=== PATIENT | male | born 1945 | race Caucasian/White ===

== ENCOUNTER 2017-09-14 13:41 | Inpatient (IN) | payer OTHER ==
[~2017-09-14] VITALS: Ht 177.8 cm; Wt 83.8 kg
[2017-09-14 14:02] LABS: AMYLASE 59 IU/L (1-118); CHLORIDE 106 mEq/L (99-109); POTASSIUM 3.8 mEq/L (3.7-5.4); SODIUM 139 mEq/L (136-147)
[2017-09-14 14:04] LABS: GLUCOSE 173 mg/dL (70-99)
[2017-09-14 14:06] LABS: BASOPHIL (%) 0.4 % (0-1); EOSINOPHIL (%) 1.1 % (0-5); EOSINOPHIL COUNT 0.1 K/uL (0-0.3); HEMATOCRIT 37.2 % (38.0-50.0); HEMOGLOBIN 12.7 G/DL (12.5-16.6); IMMATURE GRANULOCYTE (%) 1.1 % (0.0-0.7); LYMPHOCYTE (%) 27.5 % (15-42); LYMPHOCYTE COUNT 1.3 K/uL (1.0-2.8); MCH 33.5 PG (29.0-34.0); MCHC 34.1 G/DL (30.0-36.0); MCV 98.2 FL (86-99); MONOCYTE (%) 5.5 % (3-12); MONOCYTE COUNT 0.3 K/uL (0-0.8); NEUTROPHIL (%) 64.4 % (45-76); RBC DIS.WIDTH-CV 12.6 % (11.8-14.6); RBC DIS.WIDTH-SD 45.5 % (39-53); RED BLOOD COUNT 3.79 M/uL (4.00-5.50); WHITE BLOOD COUNT 4.7 K/uL (4.1-10.2)
[2017-09-14 14:08] LABS: CREATININE 0.9 mg/dL (0.6-1.3); GFR ESTIMATE (CALCULATED) > 59 mL/min/ (58.99-99999); SERUM ETHYL ALCOHOL < 10 mg/dL
[2017-09-14 14:09] LABS: UREA NITROGEN (BUN) 13 mg/dL (9-23)
[2017-09-14 14:11] LABS: LIPASE 23 U/L (1.0-51.0)
[2017-09-14 15:13] LABS: ABS NEUTROPHIL COUNT 3.6; ANISOCYTOSIS 1+; ATYPICAL LYMPHOCYTE 2.7 %; BAND NEUTROPHILS 8.9 % (0-8.0); BASOPHILS 0.9 %; EOSINOPHIL ABS CT 0.1; EOSINOPHILS 2.7 % (0-5.0); IMM.PLATELET FRACTION 1.8 (1-7); LYMPHOCYTES 13.4 % (15.0-45.0); MACROCYTES 1+; METAMYELOCYTES 0.9 %; MONOCYTES 1.8 % (0-9.0); MYELOCYTES 0.9 %; PLAT.SUFFICIENCY VERY DECREASED; PLATELET COUNT 41 K/uL (156-360); SEG.NEUTROPHILS 67.8 % (46.0-76.0)
[2017-09-14 15:15] LABS: ALBUMIN 3.7 g/dL (3.2-4.8)
[2017-09-14 15:18] LABS: TOTAL PROTEIN 6.1 g/dL (6.4-8.3)
[2017-09-14 15:20] LABS: TOTAL BILIRUBIN 0.4 mg/dL (0.0-1.0)
[2017-09-14 15:21] LABS: ALKALINE PHOSPHATASE 72 IU/L (3-129)
[2017-09-14 15:23] LABS: AST (GOT) 18 IU/L (2-34); DIRECT BILIRUBIN 0.1 mg/dL (0.0-0.3)
[2017-09-14 15:24] LABS: ALT (GPT) 10 IU/L (3-49)
[2017-09-14 16:10] LABS: INTER. NORMALIZED RATIO 1.1
[2017-09-14 16:27] LABS: AMPHETAMINE NEGATIVE (500 ng/mL); APPEARANCE CLEAR ((CLEAR)); BARBITURATES PRESUMPTIVE POSITIVE (200 ng/mL); BENZODIAZEPINES NEGATIVE (150 ng/mL); BILIRUBIN NEGATIVE; BLOOD NEGATIVE; BUPRENORPHINE NEGATIVE (10 ng/mL); COCAINE PRESUMPTIVE POSITIVE (150 ng/mL); COLOR AMBER ((YELLOW)); GLUCOSE (STRIP) NEGATIVE; KETONES 5; LEUKOCYTES NEGATIVE; METHADONE NEGATIVE (200 ng/mL); METHAMPHETAMINE NEGATIVE (500 ng/mL); NITRITE NEGATIVE; OPIATES (MORPHINE) NEGATIVE (100 ng/mL); OXYCODONE NEGATIVE (100 ng/mL); PHENCYCLIDINE NEGATIVE (25 ng/mL); PROPOXYPHENE NEGATIVE (300 ng/mL); PROTEIN (STRIP) NEGATIVE; SPECIFIC GRAVITY 1.043 (1.000-1.030); THC CANNABINOIDS NEGATIVE (50 ng/mL); TRICYCLIC ANTIDEPRESSANTS NEGATIVE (300 ng/mL); UCUL ADDED? NO; UROBILINOGEN 0.2 MG/DL (0.2-1.0)
[2017-09-14 16:31] LABS: PTT 16.6 SEC (25-37)
[2017-09-14] MEDS ORDERED: DILANTIN100 MG PO (17:33)
[2017-09-14] MEDS ORDERED: SINEMET CR 50-1 EACH PO (17:33)
[2017-09-14] MEDS ORDERED: MIRAPEX1 MG PO (17:33)
[2017-09-14] MEDS ORDERED: CYANOCOBALAM1000 MCG PO (17:34)
[2017-09-14] MEDS ORDERED: COLACE100 MG PO (17:34)
[2017-09-14] MEDS ORDERED: ADULT ASPIRIN81 MG PO (17:34)
[2017-09-14] MEDS ORDERED: VITAMIN D31000 UNIT PO (17:34)
[2017-09-14] MEDS ORDERED: SINEMET 25-2501 EAC1 PO (17:34)
[2017-09-14] MEDS ORDERED: LASIX20 MG PO (17:36)
[2017-09-14] MEDS ORDERED: TOPAMAX100 MG PO (17:36)
[2017-09-14] MEDS ORDERED: COMTAN200 MG PO (17:36)
[2017-09-14] MEDS ORDERED: SIMVASTATIN20 MG PO (17:36)
[2017-09-14 20:05] VITALS: BP 123/61
[2017-09-14 20:26] VITALS: BP 123/61
[2017-09-14 21:00] VITALS: BP 116/56
[2017-09-14 22:00] VITALS: BP 100/60
[2017-09-14 22:19] LABS: ALBUMIN 3.1 G/DL (3.2-4.8); ALKALINE PHOSPHATASE 52 IU/L (3-129); ALT (GPT) 14 IU/L (3-49); AST (GOT) 13 IU/L (2-34); CHLORIDE 109 MEQ/L (99-109); CREATINE KINASE 353 IU/L (1-294); CREATININE 0.7 MG/DL (0.6-1.3); GFR ESTIMATE (CALCULATED) > 59 mL/min/ (58.99-99999); GLUCOSE 148 mg/dL (70-99); MAGNESIUM 1.9 mg/dl (1.3-2.7); PHOSPHORUS 2.2 mg/dL (2.5-4.9); POTASSIUM 3.8 MEQ/L (3.7-5.4); SODIUM 139 MEQ/L (136-147); TOTAL BILIRUBIN 0.7 MG/DL (0.0-1.0); TOTAL PROTEIN 5.4 G/DL (6.4-8.3); UREA NITROGEN (BUN) 10 mg/dL (9-23)
[2017-09-14 22:20] LABS: HEMATOCRIT 34.5 % (38.0-50.0); HEMOGLOBIN 11.5 G/DL (12.5-16.6); MCH 33.3 PG (29.0-34.0); MCHC 33.3 G/DL (30.0-36.0); RBC DIS.WIDTH-CV 12.7 % (11.8-14.6); RBC DIS.WIDTH-SD 46.1 % (39-53); RED BLOOD COUNT 3.45 M/uL (4.00-5.50); WHITE BLOOD COUNT 5.2 K/uL (4.1-10.2)
[2017-09-14 22:27] LABS: TROP-I INTERPRETATION NEGATIVE; TROPONIN-I < 0.01 ng/mL (0.0-0.30)
[2017-09-14 22:30] LABS: IMM.PLATELET FRACTION 1.6 (1-7)
[2017-09-14 22:33] LABS: PLATELET COUNT 22 K/uL (156-360)
[2017-09-14 23:00] VITALS: BP 129/60
[2017-09-15] VITALS (38 sets, daily range): BP systolic 74–141; BP diastolic 39–76
[2017-09-15 06:08] LABS: HEMATOCRIT 34.4 % (38.0-50.0); HEMOGLOBIN 11.3 G/DL (12.5-16.6); MCH 33.4 PG (29.0-34.0); MCHC 32.8 G/DL (30.0-36.0); MCV 101.8 FL (86-99); RBC DIS.WIDTH-CV 12.8 % (11.8-14.6); RBC DIS.WIDTH-SD 47.8 % (39-53); RED BLOOD COUNT 3.38 M/uL (4.00-5.50); WHITE BLOOD COUNT 5.6 K/uL (4.1-10.2)
[2017-09-15 07:14] LABS: IMM.PLATELET FRACTION 1.9 (1-7); PLAT.SUFFICIENCY DECREASED
[2017-09-15 07:15] LABS: PLATELET COUNT 23 K/uL (156-360)
[2017-09-15 08:25] LABS: HEMATOCRIT 32.7 % (38.0-50.0); HEMOGLOBIN 10.7 G/DL (12.5-16.6); MCH 33.1 PG (29.0-34.0); MCHC 32.7 G/DL (30.0-36.0); MCV 101.2 FL (86-99); RBC DIS.WIDTH-CV 12.8 % (11.8-14.6); RBC DIS.WIDTH-SD 47.5 % (39-53); RED BLOOD COUNT 3.23 M/uL (4.00-5.50); WHITE BLOOD COUNT 5.6 K/uL (4.1-10.2)
[2017-09-15 08:43] LABS: ALBUMIN 2.9 G/DL (3.2-4.8); ALKALINE PHOSPHATASE 51 IU/L (3-129); ALT (GPT) 3 IU/L (3-49); AST (GOT) 11 IU/L (2-34); CHLORIDE 109 MEQ/L (99-109); CREATINE KINASE 316 IU/L (1-294); CREATININE 0.7 MG/DL (0.6-1.3); GFR ESTIMATE (CALCULATED) > 59 mL/min/ (58.99-99999); GLUCOSE 133 mg/dL (70-99); MAGNESIUM 1.7 mg/dl (1.3-2.7); PHOSPHORUS 2.2 mg/dL (2.5-4.9); SODIUM 141 MEQ/L (136-147); TOTAL BILIRUBIN 0.8 MG/DL (0.0-1.0); TOTAL PROTEIN 4.7 G/DL (6.4-8.3); UREA NITROGEN (BUN) 9 mg/dL (9-23)
[2017-09-15 08:44] LABS: TROP-I INTERPRETATION NEGATIVE; TROPONIN-I < 0.01 ng/mL (0.0-0.30)
[2017-09-15 08:56] LABS: PLAT.SUFFICIENCY DECREASED
[2017-09-15 08:57] LABS: PLATELET COUNT 30 K/uL (156-360)
[2017-09-15 10:16] LABS: HEMOGLOBIN A1c (GLYCOHEMOGLOB) 5.6 % (Below 5.7)
[2017-09-15 12:26] LABS: BASOPHIL (%) 0.3 % (0-1); EOSINOPHIL (%) 0.5 % (0-5); HEMATOCRIT 28.3 % (38.0-50.0); HEMOGLOBIN 9.6 G/DL (12.5-16.6); IMMATURE GRANULOCYTE (%) 0.6 % (0.0-0.7); LYMPHOCYTE (%) 11.9 % (15-42); LYMPHOCYTE COUNT 0.8 K/uL (1.0-2.8); MCH 34.2 PG (29.0-34.0); MCHC 33.9 G/DL (30.0-36.0); MCV 100.7 FL (86-99); MONOCYTE (%) 5.6 % (3-12); MONOCYTE COUNT 0.4 K/uL (0-0.8); NEUTROPHIL (%) 81.1 % (45-76); NEUTROPHIL COUNT 5.1 K/uL (1.8-6.4); RBC DIS.WIDTH-CV 12.9 % (11.8-14.6); RED BLOOD COUNT 2.81 M/uL (4.00-5.50); WHITE BLOOD COUNT 6.3 K/uL (4.1-10.2)
[2017-09-15 12:42] LABS: IMM.PLATELET FRACTION 2.5 (1-7); PLAT.SUFFICIENCY DECREASED
[2017-09-15 12:55] LABS: PLATELET COUNT 40 K/uL (156-360)
[2017-09-15 20:29] LABS: TROP-I INTERPRETATION NEGATIVE; TROPONIN-I < 0.01 ng/mL (0.0-0.30)
[2017-09-15 20:35] LABS: ALKALINE PHOSPHATASE 54 IU/L (3-129); ALT (GPT) 3 IU/L (3-49); AST (GOT) 11 IU/L (2-34); CHLORIDE 108 MEQ/L (99-109); CREATININE 0.6 MG/DL (0.6-1.3); GFR ESTIMATE (CALCULATED) > 59 mL/min/ (58.99-99999); GLUCOSE 152 mg/dL (70-99); MAGNESIUM 1.8 mg/dl (1.3-2.7); PHOSPHORUS 2.5 mg/dL (2.5-4.9); POTASSIUM 3.9 MEQ/L (3.7-5.4); SODIUM 138 MEQ/L (136-147); TOTAL BILIRUBIN 0.6 MG/DL (0.0-1.0); TOTAL PROTEIN 4.8 G/DL (6.4-8.3); UREA NITROGEN (BUN) 8 mg/dL (9-23)
[2017-09-15 20:55] LABS: HEMATOCRIT 28.5 % (38.0-50.0); HEMATOLOGY COMMENT 1 SN; HEMOGLOBIN 9.5 G/DL (12.5-16.6); MCH 33.6 PG (29.0-34.0); MCHC 33.3 G/DL (30.0-36.0); MCV 100.7 FL (86-99); PLAT.SUFFICIENCY DECREASED; RBC DIS.WIDTH-CV 12.9 % (11.8-14.6); RBC DIS.WIDTH-SD 47.2 % (39-53); RED BLOOD COUNT 2.83 M/uL (4.00-5.50); WHITE BLOOD COUNT 5.1 K/uL (4.1-10.2)
[2017-09-15 20:56] LABS: IMM.PLATELET FRACTION 2.5 (1-7); PLATELET COUNT 40 K/uL (156-360)
[2017-09-15 20:58] LABS: CREATINE KINASE 267 IU/L (1-294)
[2017-09-16] VITALS (14 sets, daily range): BP systolic 88–161; BP diastolic 44–74
[2017-09-16 11:31] LABS: HEMATOCRIT 31.7 % (38.0-50.0); HEMOGLOBIN 10.8 G/DL (12.5-16.6); MCH 34.3 PG (29.0-34.0); MCHC 34.1 G/DL (30.0-36.0); MCV 100.6 FL (86-99); RBC DIS.WIDTH-SD 47.6 % (39-53); RED BLOOD COUNT 3.15 M/uL (4.00-5.50); WHITE BLOOD COUNT 5.9 K/uL (4.1-10.2)
[2017-09-16 11:45] LABS: ALBUMIN 3.4 G/DL (3.2-4.8); CHLORIDE 108 MEQ/L (99-109); MAGNESIUM 1.8 mg/dl (1.3-2.7); POTASSIUM 3.5 MEQ/L (3.7-5.4); SODIUM 138 MEQ/L (136-147); TOTAL BILIRUBIN 0.5 MG/DL (0.0-1.0)
[2017-09-16 11:51] LABS: BASOPHIL (%) 0.2 % (0-1); EOSINOPHIL COUNT 0.1 K/uL (0-0.3); IMMATURE GRANULOCYTE (%) 0.5 % (0.0-0.7); LYMPHOCYTE (%) 16.4 % (15-42); MONOCYTE COUNT 0.5 K/uL (0-0.8); NEUTROPHIL (%) 73.9 % (45-76); NEUTROPHIL COUNT 4.3 K/uL (1.8-6.4); PLAT.SUFFICIENCY DECREASED; PLATELET COUNT 41 K/uL (156-360)
[2017-09-16 11:53] LABS: ALKALINE PHOSPHATASE 62 IU/L (3-129); ALT (GPT) 3 IU/L (3-49); AST (GOT) 11 IU/L (2-34); CREATININE 0.7 MG/DL (0.6-1.3); GFR ESTIMATE (CALCULATED) > 59 mL/min/ (58.99-99999); GLUCOSE 123 mg/dL (70-99); PHOSPHORUS 2.4 mg/dL (2.5-4.9); UREA NITROGEN (BUN) 8 mg/dL (9-23)
[2017-09-16 11:54] LABS: TOTAL PROTEIN 5.6 G/DL (6.4-8.3)
[2017-09-17 08:19] VITALS: BP 115/58
[2017-09-17 11:46] VITALS: BP 141/65
[2017-09-17 15:22] VITALS: BP 143/63
[2017-09-17 20:45] VITALS: BP 146/62
[2017-09-18 00:02] VITALS: BP 137/62
[2017-09-18 05:03] VITALS: BP 130/60
[2017-09-18 07:55] VITALS: BP 142/64
[2017-09-18 11:10] VITALS: BP 109/53
[2017-09-18 15:47] VITALS: BP 159/70
[2017-09-18 20:16] VITALS: BP 140/64
[2017-09-19] VITALS (8 sets, daily range): BP systolic 95–178; BP diastolic 55–79
[2017-09-19 05:56] LABS: BASOPHIL (%) 0.6 % (0-1); EOSINOPHIL (%) 2.8 % (0-5); EOSINOPHIL COUNT 0.1 K/uL (0-0.3); HEMATOCRIT 24.6 % (38.0-50.0); IMMATURE GRANULOCYTE (%) 0.6 % (0.0-0.7); LYMPHOCYTE (%) 31.5 % (15-42); MCH 33.6 PG (29.0-34.0); MCHC 33.7 G/DL (30.0-36.0); MCV 99.6 FL (86-99); MONOCYTE (%) 7.7 % (3-12); MONOCYTE COUNT 0.3 K/uL (0-0.8); NEUTROPHIL (%) 56.8 % (45-76); NEUTROPHIL COUNT 1.8 K/uL (1.8-6.4); RBC DIS.WIDTH-CV 13.2 % (11.8-14.6); RBC DIS.WIDTH-SD 47.4 % (39-53); WHITE BLOOD COUNT 3.2 K/uL (4.1-10.2)
[2017-09-19 06:01] LABS: HEMOGLOBIN 8.3 G/DL (12.5-16.6); RED BLOOD COUNT 2.47 M/uL (4.00-5.50)
[2017-09-19 06:09] LABS: CHLORIDE 109 MEQ/L (99-109); CREATININE 0.6 MG/DL (0.6-1.3); GFR ESTIMATE (CALCULATED) > 59 mL/min/ (58.99-99999); GLUCOSE 125 mg/dL (70-99); POTASSIUM 4.2 MEQ/L (3.7-5.4); SODIUM 142 MEQ/L (136-147); UREA NITROGEN (BUN) 11 mg/dL (9-23)
[2017-09-19 06:24] LABS: IMM.PLATELET FRACTION 1.9 (1-7); PLAT.SUFFICIENCY DECREASED; PLATELET COUNT 42 K/uL (156-360)
[2017-09-19 13:30] LABS: HEMATOCRIT 27.2 % (38.0-50.0); HEMOGLOBIN 9.1 G/DL (12.5-16.6); MCH 33.7 PG (29.0-34.0); MCHC 33.5 G/DL (30.0-36.0); MCV 100.7 FL (86-99); RBC DIS.WIDTH-CV 13.3 % (11.8-14.6); RBC DIS.WIDTH-SD 48.2 % (39-53); WHITE BLOOD COUNT 3.4 K/uL (4.1-10.2)
[2017-09-19 13:51] LABS: IMM.PLATELET FRACTION 1.7 (1-7); PLAT.SUFFICIENCY DECREASED; PLATELET COUNT 45 K/uL (156-360)
[2017-09-20 03:41] VITALS: BP 143/65
[2017-09-20 06:48] LABS: CHLORIDE 107 MEQ/L (99-109); CREATININE 0.7 MG/DL (0.6-1.3); GFR ESTIMATE (CALCULATED) > 59 mL/min/ (58.99-99999); GLUCOSE 118 mg/dL (70-99); POTASSIUM 4.4 MEQ/L (3.7-5.4); SODIUM 140 MEQ/L (136-147); UREA NITROGEN (BUN) 14 mg/dL (9-23)
[2017-09-20 07:01] LABS: BASOPHIL (%) 0.3 % (0-1); EOSINOPHIL (%) 2.3 % (0-5); EOSINOPHIL COUNT 0.1 K/uL (0-0.3); HEMOGLOBIN 8.9 G/DL (12.5-16.6); IMMATURE GRANULOCYTE (%) 0.5 % (0.0-0.7); LYMPHOCYTE (%) 24.2 % (15-42); MCH 33.2 PG (29.0-34.0); MCV 100.7 FL (86-99); MONOCYTE (%) 8.8 % (3-12); MONOCYTE COUNT 0.4 K/uL (0-0.8); NEUTROPHIL (%) 63.9 % (45-76); NEUTROPHIL COUNT 2.5 K/uL (1.8-6.4); RBC DIS.WIDTH-CV 13.5 % (11.8-14.6); RED BLOOD COUNT 2.68 M/uL (4.00-5.50)
[2017-09-20 07:19] LABS: IMM.PLATELET FRACTION 1.5 (1-7); PLAT.SUFFICIENCY DECREASED; PLATELET COUNT 45 K/uL (156-360)
[2017-09-20 08:06] VITALS: BP 154/67
[2017-09-20 10:49] VITALS: BP 125/58
== END 2017-09-20 13:57 | DRG 184 ==
LOC: TRA 13:41 → 4WEST 18:46 → EDOF 18:46 → ENRESERV 19:38 → 4WEST 20:03 → ENRESERV 09-16 12:23 → 3EAST 09-16 14:15
PROVIDERS: Emergency Medicine; Internal Medicine; Internal Medicine Critical Care Medicine; Surgery
PROC: 30233R1 Transfusion of Nonautologous Platelets into Peripheral Vein, Percutaneous Approach (ICD-10-PCS; principal; 2017-09-15)
DX: S22.43XA Multiple fractures of ribs, bilateral, initial encounter for closed fracture (principal); S22.21XA Fracture of manubrium, initial encounter for closed fracture; D69.6 Thrombocytopenia, unspecified; I95.9 Hypotension, unspecified; G20 Parkinson's disease; I10 Essential (primary) hypertension; E78.5 Hyperlipidemia, unspecified; G40.909 Epilepsy, unspecified, not intractable, without status epilepticus; G25.81 Restless legs syndrome; G43.909 Migraine, unspecified, not intractable, without status migrainosus; D64.9 Anemia, unspecified; E56.9 Vitamin deficiency, unspecified; I87.2 Venous insufficiency (chronic) (peripheral); M19.90 Unspecified osteoarthritis, unspecified site; M85.80 Other specified disorders of bone density and structure, unspecified site; N40.1 Benign prostatic hyperplasia with lower urinary tract symptoms; N32.0 Bladder-neck obstruction; V49.50XA Passenger injured in collision with unspecified motor vehicles in traffic accident, initial encounter; Z79.82 Long term (current) use of aspirin
CPT/HCPCS: 70450; 71045; 71250; 71260; 72125; 72129; 72132; 74177; 80048; 80053; 80076; 80185; 81003; 82150; 82272; 82550; 82550 91; 83036; 83690; 83735; 84100; 84153; 84484; 84999; 85025; 85027; 85610; 85730; 86850; 86900; 86901; 87641; 93005; 93306; 99281; 99285; G0480; J1170; J2405; J3010; J7030; J7040; J7042; J7120; P9037

== ENCOUNTER 2017-09-20 10:28 | Inpatient (IN) | payer OTHER ==
[~2017-09-20] VITALS: Ht 177.8 cm; Wt 86.3 kg
[~2017-09-20 10:28] MED LIST: ADULT ASPIRIN81 MG PO; COLACE100 MG PO; COMTAN200 MG PO; CYANOCOBALAM1000 MCG PO; DILANTIN100 MG PO; LASIX20 MG PO; MIRAPEX1 MG PO; SIMVASTATIN20 MG PO; SINEMET 25-2501 EAC1 PO; SINEMET CR 50-1 EACH PO; TOPAMAX100 MG PO; VITAMIN D31000 UNIT PO
[2017-09-20 14:19] VITALS: BP 170/72
[2017-09-20 16:08] VITALS: BP 161/68
[2017-09-20 23:35] VITALS: BP 151/70
[2017-09-21 05:57] VITALS: BP 126/61
[2017-09-21 06:52] LABS: HEMATOCRIT 27.9 % (38.0-50.0); HEMOGLOBIN 9.4 G/DL (12.5-16.6); MCH 33.6 PG (29.0-34.0); MCHC 33.7 G/DL (30.0-36.0); MCV 99.6 FL (86-99); RBC DIS.WIDTH-CV 13.3 % (11.8-14.6); RBC DIS.WIDTH-SD 47.9 % (39-53); WHITE BLOOD COUNT 4.4 K/uL (4.1-10.2)
[2017-09-21 07:03] LABS: ALBUMIN 3.3 G/DL (3.2-4.8); ALKALINE PHOSPHATASE 69 IU/L (3-129); ALT (GPT) 3 IU/L (3-49); AST (GOT) 9 IU/L (2-34); CHLORIDE 106 MEQ/L (99-109); CREATININE 0.7 MG/DL (0.6-1.3); GFR ESTIMATE (CALCULATED) > 59 mL/min/ (58.99-99999); GLUCOSE 96 mg/dL (70-99); POTASSIUM 4.1 MEQ/L (3.7-5.4); SODIUM 139 MEQ/L (136-147); TOTAL BILIRUBIN 0.8 MG/DL (0.0-1.0); TOTAL PROTEIN 5.4 G/DL (6.4-8.3); UREA NITROGEN (BUN) 14 mg/dL (9-23)
[2017-09-21 07:30] LABS: IMM.PLATELET FRACTION 1.7 (1-7); PLAT.SUFFICIENCY DECREASED; PLATELET COUNT 45 K/uL (156-360)
[2017-09-21 15:22] VITALS: BP 138/65
[2017-09-22 05:12] VITALS: BP 98/58
[2017-09-22 06:13] LABS: CHLORIDE 104 MEQ/L (99-109); CREATININE 0.7 MG/DL (0.6-1.3); GFR ESTIMATE (CALCULATED) > 59 mL/min/ (58.99-99999); GLUCOSE 92 mg/dL (70-99); POTASSIUM 3.9 MEQ/L (3.7-5.4); SODIUM 138 MEQ/L (136-147); UREA NITROGEN (BUN) 19 mg/dL (9-23)
[2017-09-22 06:39] LABS: BASOPHIL (%) 0.5 % (0-1); EOSINOPHIL (%) 2.4 % (0-5); EOSINOPHIL COUNT 0.1 K/uL (0-0.3); HEMATOCRIT 27.1 % (38.0-50.0); HEMOGLOBIN 9.2 G/DL (12.5-16.6); IMMATURE GRANULOCYTE (%) 0.5 % (0.0-0.7); LYMPHOCYTE (%) 30.2 % (15-42); LYMPHOCYTE COUNT 1.3 K/uL (1.0-2.8); MCH 33.8 PG (29.0-34.0); MCHC 33.9 G/DL (30.0-36.0); MCV 99.6 FL (86-99); MONOCYTE COUNT 0.3 K/uL (0-0.8); NEUTROPHIL (%) 58.4 % (45-76); NEUTROPHIL COUNT 2.5 K/uL (1.8-6.4); RBC DIS.WIDTH-CV 13.6 % (11.8-14.6); RBC DIS.WIDTH-SD 47.8 % (39-53); RED BLOOD COUNT 2.72 M/uL (4.00-5.50); WHITE BLOOD COUNT 4.2 K/uL (4.1-10.2)
[2017-09-22 07:08] LABS: IMM.PLATELET FRACTION 1.9 (1-7); PLAT.SUFFICIENCY DECREASED; PLATELET COUNT 48 K/uL (156-360)
[2017-09-22 15:37] VITALS: BP 120/60
[2017-09-23 06:55] VITALS: BP 153/70
[2017-09-23 15:21] VITALS: BP 117/57
[2017-09-24 05:22] VITALS: BP 120/62
[2017-09-24 15:05] VITALS: BP 107/56
[2017-09-25 04:47] VITALS: BP 117/58
[2017-09-25 15:06] VITALS: BP 120/61
[2017-09-26 05:49] VITALS: BP 115/58
[2017-09-26 06:39] LABS: CHLORIDE 108 MEQ/L (99-109); CREATININE 0.8 MG/DL (0.6-1.3); GFR ESTIMATE (CALCULATED) > 59 mL/min/ (58.99-99999); GLUCOSE 96 mg/dL (70-99); IRON 66 MCG/DL (35-150); POTASSIUM 4.5 MEQ/L (3.7-5.4); SODIUM 140 MEQ/L (136-147); TRANSFERRIN (TIBC) 168.5 mg/dL (215-380); TRANSFERRIN SATUR. 39 % (20-55); UREA NITROGEN (BUN) 18 mg/dL (9-23)
[2017-09-26 06:43] LABS: BASOPHIL (%) 0.5 % (0-1); EOSINOPHIL (%) 1.9 % (0-5); EOSINOPHIL COUNT 0.1 K/uL (0-0.3); HEMOGLOBIN 10.2 G/DL (12.5-16.6); IMMATURE GRANULOCYTE (%) 0.7 % (0.0-0.7); LYMPHOCYTE (%) 28.3 % (15-42); LYMPHOCYTE COUNT 1.2 K/uL (1.0-2.8); MCH 33.4 PG (29.0-34.0); MCHC 32.9 G/DL (30.0-36.0); MCV 101.6 FL (86-99); MONOCYTE (%) 8.1 % (3-12); MONOCYTE COUNT 0.3 K/uL (0-0.8); NEUTROPHIL (%) 60.5 % (45-76); NEUTROPHIL COUNT 2.6 K/uL (1.8-6.4); PLATELET COUNT 55 K/uL (156-360); RBC DIS.WIDTH-CV 14.5 % (11.8-14.6); RBC DIS.WIDTH-SD 51.4 % (39-53); RED BLOOD COUNT 3.05 M/uL (4.00-5.50); WHITE BLOOD COUNT 4.2 K/uL (4.1-10.2)
[2017-09-26 08:09] LABS: FOLIC ACID (FOLATE) > 22.0 NG/ML (5.0-22.0)
[2017-09-26 15:33] VITALS: BP 138/61
[2017-09-27 06:07] VITALS: BP 106/57
[2017-09-27 15:50] VITALS: BP 131/62
[2017-09-28 05:08] VITALS: BP 131/61
[2017-09-28 15:32] VITALS: BP 108/58
[2017-09-29 06:30] VITALS: BP 141/67
[2017-09-29 15:44] VITALS: BP 103/57
[2017-09-30 04:26] VITALS: BP 112/56
[2017-09-30] MEDS ORDERED: FAMOTIDINE20 MG PO (12:28)
[2017-09-30] MEDS ORDERED: Salonpas 4% Patch TD (12:28)
[2017-09-30] MEDS ORDERED: TYLENOL REGULA325 MG PO (12:29)
[2017-09-30 15:21] VITALS: BP 107/55
[2017-10-01 04:58] VITALS: BP 134/63
== END 2017-10-01 12:49 | DRG 560 ==
LOC: 3WEST 10:28 → ENPENDDIS 10-01 → 3WEST 10-01 11:52
PROVIDERS: Family Medicine Sports Medicine; Physical Medicine & Rehabilitation Pain Medicine
PROC: F07M0ZZ Range of Motion and Joint Mobility Treatment of Musculoskeletal System - Whole Body (ICD-10-PCS; principal; 2017-09-20)
DX: S22.21XD Fracture of manubrium, subsequent encounter for fracture with routine healing (principal); S22.43XD Multiple fractures of ribs, bilateral, subsequent encounter for fracture with routine healing; S32.019D Unspecified fracture of first lumbar vertebra, subsequent encounter for fracture with routine healing; R26.2 Difficulty in walking, not elsewhere classified; J90 Pleural effusion, not elsewhere classified; J98.11 Atelectasis; D69.6 Thrombocytopenia, unspecified; E83.51 Hypocalcemia; M25.512 Pain in left shoulder; M25.511 Pain in right shoulder; F22 Delusional disorders; G40.909 Epilepsy, unspecified, not intractable, without status epilepticus; N40.1 Benign prostatic hyperplasia with lower urinary tract symptoms; I10 Essential (primary) hypertension; G20 Parkinson's disease; G25.81 Restless legs syndrome; E78.5 Hyperlipidemia, unspecified; N32.0 Bladder-neck obstruction; D64.9 Anemia, unspecified; G43.909 Migraine, unspecified, not intractable, without status migrainosus; I87.2 Venous insufficiency (chronic) (peripheral)
CPT/HCPCS: 71046; 73030; 80048; 80053; 82607; 82746; 83540; 84466; 85025; 85027; 97110 GO; 97530 GP